=== PATIENT | male | born 1935 | race Caucasian/White ===

== ENCOUNTER 2017-02-26 17:31 | Inpatient (IN) | payer MEDICARE ==
[~2017-02-26] VITALS: Ht 172.7 cm; Wt 73.9 kg
[~2017-02-26 17:31] MED LIST: AMIO200T2 PO; CARV3.122 PO; CHOL200038 PO; CYAN100071 PO; ECON30CR2 TP; EZET10TA PO; FOLI0.8T PO; FURO20TA4 PO; NIAC500C3 PO; PANT40TA2 PO; PARO20TA51 PO; SIMV40TA5 PO; TRAZ-144 PO; WARF2TAB6 PO; [UNRECOGNIZED DRUG - OTHER] PO
--- NOTE | 2017-02-26 17:40 | NUR ---
BIB RA FROM HOME, FEVER AND CHILLS. NOTED AMS, FEBRILE. NOTED GENERALIZED WEAKNESS AND SAHKINESS. SEEN BY MD FOR EVAL. SAFETY AND COMFORT MEASURES PROVIDED. WILL MONITOR.
[2017-02-26] MEDS ORDERED: ACETAMINOPHEN 650 MG/SUPP.RECT RC ONE ×2 (17:43→18:30)
[2017-02-26 17:51] LABS: BASOPHILS # (AUTO) 0.3 /CMM (0.0-0.2); BASOPHILS % (AUTO) 2.2 % (0.0-2.0); EOSINOPHILS # (AUTO) 0.3 /CMM (0.0-0.7); EOSINOPHILS % (AUTO) 2.2 % (0.0-6.0); HEMATOCRIT 39 % (39-51); HEMOGLOBIN 12.3 g/dL (13.5-17.5); MEAN CORPUSCULAR HEMOGLOBIN 28 PG (26.0-33.0); MEAN CORPUSCULAR HGB CONC 32 g/dl (31.0-36.0); MEAN CORPUSCULAR VOLUME 88 fL (80-96); MONOCYTES # (AUTO) 0.9 /CMM (0.1-1.30); MONOCYTES % (AUTO) 6.3 % (2.0-12.0); NEUTROPHILS # (AUTO) 11.7 /CMM (1.8-8.9); NEUTROPHILS % (AUTO) 82.3 % (43.0-81.0); PLATELET COUNT (AUTO) 243 /CMM (150-450); RDW COEFFICIENT OF VARIATION 16.1 (11.5-15.0); RED BLOOD CELL COUNT(AUTO) 4.42 MIL/uL (4.5-6.0); WHITE BLOOD COUNT (AUTO) 14.2 K/uL (4.3-11.0)
[2017-02-26] MEDS ORDERED: IV NS 0.9% 1,000 ML BAG IV ONE ×2 (18:00→18:30)
--- NOTE | 2017-02-26 18:00 | NUR ---
IV ACCESS STARTED, BLOOD DRAWN FOR LABS. FC INITIATED, URINE SAMPEL OBTAINED.
[2017-02-26 18:02] LABS: CALCIUM, SERUM 9.2 mg/dL (8.5-10.1); CARBON DIOXIDE 30 mmol/L (21-32); CHLORIDE 99 mmol/L (98-107); CREATININE 1.5 mg/dL (0.6-1.3); GLUCOSE 87 mg/dL (74-106); SODIUM SERUM 137 mmol/L (136-145); UREA NITROGEN, BLOOD 24 mg/dL (7-18)
--- NOTE | 2017-02-26 18:03 | NUR ---
IVF INFUSED AND TYLENOL RECTALLY GIVEN ORDERED
[2017-02-26 18:05] LABS: INR 1.9 (0.87-1.13); PROTHROMBIN TIME 20.4 SECS (9.5-12.7)
--- NOTE | 2017-02-26 18:05 | NUR ---
PT TAKEN TO CT.
[2017-02-26 18:07] LABS: ALANINE AMINOTRANSFERASE 41 U/L (12-78); ALBUMIN 3.1 g/dL (3.4-5.0); ALCOHOL, BLOOD < 3 mg/dL (0-0); ALKALINE PHOSPHATASE 84 U/L (46-116); ASPARTATE AMINOTRANSFERASE 45 U/L (15-37); BILIRUBIN,DIRECT 0.2 mg/dL (0.0-0.2); BILIRUBIN,TOTAL 0.8 mg/dL (0.2-1.0); TOTAL PROTEIN, SERUM 8.9 g/dL (6.4-8.2)
[2017-02-26 18:08] LABS: SERUM AMMONIA 16 umol/L (11-32)
[2017-02-26 18:09] LABS: TROPONIN I 0.018 ng/mL (0.00-0.056)
[2017-02-26 18:11] LABS: APPEARANCE,URINE Clear (CLEAR); BILIRUBIN,URINE Negative (NEGATIVE); BLOOD, URINE Trace-intact Ery/uL (NEGATIVE); COLOR,URINE Dark (YELLOW); KETONES,URINE Negative (NEGATIVE); LEUKOCYTE ESTERASE ,URINE Negative (NEGATIVE); NITRITE, URINE Negative (NEGATIVE); PH,URINE 5.5 (5.0-8.0); PROTEIN,URINE Negative (NEGATIVE); UGLUCOSE Negative (NEGATIVE); UROBILINOGEN,URINE 0.2 EU/dL (0.2)
[2017-02-26 18:20] LABS: THYROID STIMULATING HORMONE 2.348 uIU/mL (0.358-3.74)
--- NOTE | 2017-02-26 18:23 | NUR ---
DI HERNÁNDEZ- - SON.
[2017-02-26] MEDS ORDERED: WARF1TAB6 PO (18:27)
[2017-02-26] MEDS ORDERED: CHOL100044 PO (18:27)
[2017-02-26] MEDS ORDERED: MULT-659 PO (18:27)
[2017-02-26] MEDS ORDERED: IV NS 0.9% 500 ML IV ONE (18:30)
[2017-02-26 18:33] LABS: BACTERIA,URINE None seen /HPF (None Seen); HYALINE CASTS, URINE Moderate /LPF (None Seen); SQUAMOUS EPITHELIAL CELL,UR Few /HPF (None Seen); WBC,URINE 0-2 /HPF (0-3)
[2017-02-26] MEDS ORDERED: WARF2TAB6 PO (18:37)
--- NOTE | 2017-02-26 19:02 | NUR ---
RECEIVED REPORT FROM MERY FINN FOR SARINA. PT IN CT AT THIS TIME.
[2017-02-26] MEDS ORDERED: PIPERACILLIN /TAZOBACTAM 3.375 G VIAL IV ONE (19:24)
--- NOTE | 2017-02-26 19:25 | NUR ---
BED 313-1
[2017-02-26] MEDS ORDERED: PIPERACILLIN /TAZOBACTAM 3.375 G in IV D5W 50 ML IV ONE (19:30)
[2017-02-26] MEDS ORDERED: MORPHINE SULFATE INJ 4 MG/ML DISP.SYRIN IV ONE (19:30)
--- NOTE | 2017-02-26 19:36 | NUR ---
REPORT GIVEN TO MERY CHURCHILL FOR SARINA/ TELE BED 313-1
--- NOTE | 2017-02-26 19:46 | NUR ---
LAB AT BEDSIDE FOR LACTIC ACID REDRAW
--- NOTE | 2017-02-26 19:52 | NUR ---
PATIENT'S SON REYNA- [phone]
--- NOTE | 2017-02-26 20:12 | NUR ---
RECTAL TEMP 103.2 DR. GREEN MADE AWARE. VERBAL ORDERS PER MD TO GIVEN MOTRIN 800 PO NOW.
[2017-02-26] MEDS ORDERED: IBUPROFEN 400 MG TABLET ONE (20:13)
[2017-02-26 21:30] VITALS: BP 110/70
[2017-02-26] MEDS ORDERED: IBUPROFEN 800 MG TABLET PO PRN (21:30)
--- NOTE | 2017-02-26 21:31 | NUR ---
PT TRANSFERED PER ACLS PROTOCOL.
--- NOTE | 2017-02-26 21:35 | NUR ---
MATHEMATICS EDUCATION PROFESSOR NOTE RECEIVED PATIENT FROM ER VIA [place], PATIENT IS ALERT AND ORIENTEDX2, GETTING OXYGEN 2L/MIN VIA NC, HERRING CATH NOTED WITH SLIGHT CLOUDY YELLOW URINE. TELE MONITOR AFIB WITH BBB 98. IV ON LEFT FA AND RIGHT FA ARE PATENT AND INTACT, WILL CONNECT TO FLUID. PICTURES TAKEN FOR SKIN PROBLEMS, NO EDEMA NOTED. SRX2, BED IN LOW POSITION, CALL LIGHT WITHIN REACH, WILL CONTINUE TO MONITOR PATIENT.
[2017-02-26] MEDS ORDERED: MORPHINE SULFATE INJ 2 MG/ML DISP.SYRIN IV PRN (22:00)
[2017-02-26] MEDS ORDERED: HYDROCODONE/APAP 5/325MG 1 EACH TABLET PO PRN (22:00)
[2017-02-26] MEDS ORDERED: ACETAMINOPHEN 325 MG TABLET PO PRN (22:00)
[2017-02-26] MEDS ORDERED: MAGNESIUM HYDROXIDE 30 ML UDC PO PRN (22:00)
[2017-02-26] MEDS ORDERED: ONDANSETRON HCL/PF 4 MG/2 ML VIAL IVP PRN (22:00)
[2017-02-26] MEDS ORDERED: ZOLPIDEM TARTRATE 5 MG TABLET PO PRN (22:00)
[2017-02-26] MEDS ORDERED: MAG HYDROX/AL HYDROX/SIMETH 30 ML UDC PO PRN (22:00)
[2017-02-26] MEDS: IV NS 0.9% 1,000 ML IV PRN (22:07)
[2017-02-26] MEDS ORDERED: PIPERACILLIN /TAZOBACTAM 2.25 G VIAL IV ONE (23:26)
[2017-02-27] VITALS (7 sets, daily range): BP systolic 102–149; BP diastolic 64–78
[2017-02-27] MEDS: PIPERACILLIN /TAZOBACTAM 2.25 G in IV D5W 50 ML IV SCH ×5 (00:10→23:50)
[2017-02-27] MEDS ORDERED: WARFARIN SODIUM 1 MG TABLET PO SCH (01:00)
--- NOTE | 2017-02-27 01:20 | NUR ---
MS ORDONEZ NOTE PATIENT'S HOME MED WARFARIN 1MG PO AT 0100 HELD AT THIS TIME SINCE PATIENT IS IN DEEP SLEEP, AND PER CHARGE NURSE, NEED TO CHECK THE USUAL TIME THAT PT TAKES WITH A CAREGIVER OR FAMILY MEMBERS. WILL ENDORSE TO DAY SHIFT NURSE IN THE MORNING. Addendum: 02/27/17 at 0150 by MAIRA GALLO RN GEE GAVIN
[2017-02-27] MEDS ORDERED: PIPERACILLIN /TAZOBACTAM 2.25 G VIAL IV ONE (04:27)
--- NOTE | 2017-02-27 06:33 | NUR ---
WASTEWATER DESIGN ENGINEER NOTE PATIENT IS SLEEPING IN BED COMFORTABLY, NO S/S OF RESPIRATORY DISTRESS OR FACIAL GRIMACE NOTED. TELE MONITOR AFIB 62. WILL ENDORSE TO DAY SHIFT NURSE FOR SARINA.
[2017-02-27 06:53] LABS: BASOPHILS % (AUTO) 0.2 % (0.0-2.0); EOSINOPHILS % (AUTO) 0.3 % (0.0-6.0); HEMATOCRIT 28 % (39-51); HEMOGLOBIN 9.2 g/dL (13.5-17.5); LYMPHOCYTES # (AUTO) 0.4 /CMM (0.8-4.8); LYMPHOCYTES % (AUTO) 3.4 % (20.0-44.0); MEAN CORPUSCULAR HEMOGLOBIN 29 PG (26.0-33.0); MEAN CORPUSCULAR HGB CONC 33 g/dl (31.0-36.0); MEAN CORPUSCULAR VOLUME 88 fL (80-96); MONOCYTES # (AUTO) 0.5 /CMM (0.1-1.30); MONOCYTES % (AUTO) 4.3 % (2.0-12.0); NEUTROPHILS # (AUTO) 11.2 /CMM (1.8-8.9); NEUTROPHILS % (AUTO) 91.8 % (43.0-81.0); PLATELET COUNT (AUTO) 151 /CMM (150-450); RDW COEFFICIENT OF VARIATION 17.3 (11.5-15.0); RED BLOOD CELL COUNT(AUTO) 3.18 MIL/uL (4.5-6.0); WHITE BLOOD COUNT (AUTO) 12.2 K/uL (4.3-11.0)
[2017-02-27 07:18] LABS: CHOLESTEROL 136 mg/dL (<200); HDL CHOLESTEROL 56 mg/dL (40-60); LDL 72 mg/dL (0-99); TRIGLYCERIDES 51 mg/dL (30-150)
[2017-02-27 07:27] LABS: CARBON DIOXIDE 28 mmol/L (21-32); CHLORIDE 107 mmol/L (98-107); CREATININE 1.3 mg/dL (0.6-1.3); GLUCOSE 84 mg/dL (74-106); MAGNESIUM 1.8 mg/dL (1.8-2.4); PHOSPHORUS 3.5 mg/dL (2.5-4.9); POTASSIUM 3.7 mmol/L (3.5-5.1); SODIUM SERUM 141 mmol/L (136-145); UREA NITROGEN, BLOOD 21 mg/dL (7-18)
--- NOTE | 2017-02-27 07:30 | NUR ---
RADIOLOGIC TECHNICIAN NOTES PT IN BED, ASLEEP, EASY TO AROUSE, ALERT AND ORIENTED, NO COMPLAINT OF PAIN, RESPIRATIONS REGULAR AND NOT LABORED, IV FLUIDS INFUSING WELL, CALL LIGHT WITHIN REACH, ASSISTED WITH BREAKFAST AND NEEDS.
[2017-02-27] MEDS: AMIODARONE HCL 200 MG TABLET PO SCH (09:00)
[2017-02-27] MEDS: CARVEDILOL 3.125 MG TABLET PO SCH ×2 (09:00→17:00)
[2017-02-27] MEDS ORDERED: FUROSEMIDE 20 MG TABLET PO SCH (09:00)
[2017-02-27] MEDS ORDERED: PANTOPRAZOLE 40 MG TABLET.DR PO SCH (09:00)
[2017-02-27] MEDS ORDERED: HEPARIN SODIUM, PORCINE 5000 UNITS/1 ML VIAL SQ SCH (09:00)
--- NOTE | 2017-02-27 09:00 | NUR ---
HIGH MAN NOTES COREG AND CORDARONE HELD, BP 109/70, HR 67
[2017-02-27] MEDS: MULTIVITAMINS,THERAGRAN 1 UDTAB TABLET PO SCH (09:01)
[2017-02-27] MEDS: PANTOPRAZOLE 40 MG TABLET.DR PO SCH (09:01)
[2017-02-27] MEDS: CHOLECALCIFEROL 1,000 UNIT TABLET (VIT D3) PO SCH (09:01)
[2017-02-27] MEDS: EZETIMIBE 10 MG TABLET PO SCH (09:01)
[2017-02-27] MEDS: CYANOCOBALAMIN 500 MCG TABLET PO SCH (09:01)
[2017-02-27] MEDS: FOLIC ACID 1 MG TABLET PO SCH (09:01)
[2017-02-27] MEDS: PAROXETINE HCL 20 MG TABLET PO SCH (09:01)
[2017-02-27 09:53] LABS: INR 1.87 (0.87-1.13); PROTHROMBIN TIME 20.8 SECS (9.5-12.7)
[2017-02-27 09:54] LABS: THYROID STIMULATING HORMONE 0.87 uIU/mL (0.358-3.74)
[2017-02-27] MEDS: ECONAZOLE NITRATE 15 GM TUBE TP SCH ×2 (10:24→17:40)
[2017-02-27] MEDS: ENOXAPARIN SODIUM 80 MG/0.8 ML DISP.SYRIN SQ SCH ×2 (10:38→21:14)
--- NOTE | 2017-02-27 12:00 | NUR ---
EFFICIENCY MINER BLASTING NOTES PT IN BED, RESTING, NO SIGN OF PAIN OR DISTRESS, PT SEEN BY DR. LEDESMA AND DR. BEEBE, PLAN OF CARE DISCUSSED WITH PT AND SON DI OVER THE PHONE, VERBALIZED UNDERSTANDING, CAREGIVER CHANA AT BEDSIDE.
[2017-02-27] MEDS: IV NS 0.9% 1,000 ML IV PRN (13:01)
--- NOTE | 2017-02-27 17:00 | NUR ---
MARKETING RESEARCH ANALYST NOTES COREG HELD, BP 108/68, HR 69
--- NOTE | 2017-02-27 18:13 | NUR ---
AUTOMOTIVE SERVICE MANAGER NOTES PT IN BED, AWAKE, ALERT AND ORIENTED, NO COMPLAINT OF PAIN, NOT IN DISTRESS, CAREGIVER CHANA AT BEDSIDE, ASSISTED WITH DINNER, IV FLUIDS INFUSING WELL, RECEIVED LATEST BLOOD CULTURE RESULT FROM LAB, MD AWARE, ID CONSULT ORDERED, PM CARE RENDERED, ALL NEEDS ATTENDED.
--- NOTE | 2017-02-27 19:35 | NUR ---
PLASTERER STUCCO NOTE RECEIVED PATIENT FROM DAY SHIFT, PATIENT IS ALERT AND ORIENTEDX2-3, NO S/S OF RESPIRATORY DISTRESS OR PAIN AT THIS TIME. IV ON LEFT AND RIGHT FA ARE PATENT AND INTACT, FLUID IS RUNNING. TELE MONITOR AFIB 60. SRX2, BED IN LOW POSITION, CALL LIGHT WITHIN REACH, WILL CONTINUE TO MONITOR PATIENT.
[2017-02-27] MEDS: TRAZODONE 50 MG TABLET PO SCH (21:14)
[2017-02-27] MEDS: SIMVASTATIN 40 MG TABLET PO SCH (21:14)
[2017-02-28] VITALS (7 sets, daily range): BP systolic 135–158; BP diastolic 62–88
[2017-02-28] MEDS: IV NS 0.9% 1,000 ML IV PRN (01:34)
[2017-02-28] MEDS: PIPERACILLIN /TAZOBACTAM 2.25 G in IV D5W 50 ML IV SCH ×4 (05:40→23:56)
--- NOTE | 2017-02-28 06:43 | NUR ---
ARTS AND CRAFTS INSTRUCTOR NOTE PATIENT IS RESTING IN BED COMFORTABLY, NO ACUTE DISTRESS NOTED DURING THE TRANSFORMER TESTER. IV ON LEFT AND RIGHT FA ARE PATENT AND INTACT, NS IS RUNNING. WILL ENDORSE TO DAY SHIFT FOR SARINA.
[2017-02-28 07:01] LABS: EOSINOPHILS # (AUTO) 0.2 /CMM (0.0-0.7); EOSINOPHILS % (AUTO) 3.2 % (0.0-6.0); HEMATOCRIT 30 % (39-51); HEMOGLOBIN 9.9 g/dL (13.5-17.5); LYMPHOCYTES # (AUTO) 0.6 /CMM (0.8-4.8); LYMPHOCYTES % (AUTO) 8.9 % (20.0-44.0); MEAN CORPUSCULAR HEMOGLOBIN 29 PG (26.0-33.0); MEAN CORPUSCULAR HGB CONC 33 g/dl (31.0-36.0); MEAN CORPUSCULAR VOLUME 89 fL (80-96); MONOCYTES # (AUTO) 0.5 /CMM (0.1-1.30); MONOCYTES % (AUTO) 6.8 % (2.0-12.0); NEUTROPHILS # (AUTO) 5.5 /CMM (1.8-8.9); NEUTROPHILS % (AUTO) 81.1 % (43.0-81.0); PLATELET COUNT (AUTO) 133 /CMM (150-450); RED BLOOD CELL COUNT(AUTO) 3.38 MIL/uL (4.5-6.0); WHITE BLOOD COUNT (AUTO) 6.8 K/uL (4.3-11.0)
--- NOTE | 2017-02-28 07:05 | NUR ---
LINE PRODUCER OPENING NOTE PATIENT IS SLEEPING IN BED COMFORTABLY. PATIENT OPENED THE EYES BRIEFLY AND SPOKE TO RN. A/O X 4. VS WNL, AFIB W HR 62. PATIENT IS STABLE. BED IS IN LOWEST POSITION, SIDE RAILS UP X 2, BED ALARM ON. ALL NEEDS ARE MET.
[2017-02-28 07:24] LABS: CALCIUM, SERUM 8.3 mg/dL (8.5-10.1); CARBON DIOXIDE 30 mmol/L (21-32); CHLORIDE 108 mmol/L (98-107); CREATININE 1.1 mg/dL (0.6-1.3); GLUCOSE 84 mg/dL (74-106); MAGNESIUM 1.9 mg/dL (1.8-2.4); PHOSPHORUS 3.5 mg/dL (2.5-4.9); POTASSIUM 3.8 mmol/L (3.5-5.1); SODIUM SERUM 143 mmol/L (136-145); UREA NITROGEN, BLOOD 14 mg/dL (7-18)
[2017-02-28 07:26] LABS: INR 1.93 (0.87-1.13); PROTHROMBIN TIME 21.5 SECS (9.5-12.7)
--- NOTE | 2017-02-28 07:45 | NUR ---
MIXING MACHINE ATTENDANT NOTE PATIENT STATED HE WILL TAKE HIS 7:30 MEDICATION LITTLE Addendum: 02/28/17 at 0948 by CARLOS ENRIQUE FIGUEROA RN LATER HE IS VERY SLEEPY. MEDICATION IS HELD AT THIS TIME. WILL ADMINISTER WITH 9 O CLOCK MEDICATIONS.
[2017-02-28] MEDS: FOLIC ACID 1 MG TABLET PO SCH (08:50)
[2017-02-28 08:51] LABS: IRON, SERUM 24 ug/dl (50-175); TOTAL IRON BINDING CAPACITY 162 ug/dl (250-450)
[2017-02-28] MEDS: CARVEDILOL 3.125 MG TABLET PO SCH ×2 (08:52→17:05)
[2017-02-28] MEDS: EZETIMIBE 10 MG TABLET PO SCH (08:52)
[2017-02-28] MEDS: PANTOPRAZOLE 40 MG TABLET.DR PO SCH (08:53)
[2017-02-28] MEDS: AMIODARONE HCL 200 MG TABLET PO SCH (08:55)
[2017-02-28] MEDS: CYANOCOBALAMIN 500 MCG TABLET PO SCH (08:56)
[2017-02-28] MEDS: CHOLECALCIFEROL 1,000 UNIT TABLET (VIT D3) PO SCH (08:57)
[2017-02-28] MEDS: MULTIVITAMINS,THERAGRAN 1 UDTAB TABLET PO SCH (08:57)
[2017-02-28] MEDS ORDERED: WARFARIN SODIUM 1 MG TABLET PO SCH (09:00)
--- NOTE | 2017-02-28 09:00 | NUR ---
BLOOD TYPER NOTE DR LEDESMA REQUESTEED PATIENT'S MOST RECENT ECHO FILES TO BE OBTAINED FROM [facility]. PATIENT SIGNED MEDICAL RELEASE FORM.
--- NOTE | 2017-02-28 09:00 | NUR ---
RADIO/TV TECHNICIAN NOTE WARFARIN NOT ADMINISTERED AND RETURNED TO OMNICEL DUE TO CHANGE IN ORDER BY Jena
[2017-02-28 09:06] LABS: FERRITIN 266 ng/mL (8-388)
[2017-02-28] MEDS: ENOXAPARIN SODIUM 80 MG/0.8 ML DISP.SYRIN SQ SCH ×2 (09:07→21:09)
[2017-02-28] MEDS: Z GUARD REMEDY 2 OZ OINT TP PRN (09:10)
[2017-02-28] MEDS: ECONAZOLE NITRATE 15 GM TUBE TP SCH ×2 (09:15→17:06)
[2017-02-28] MEDS: PAROXETINE HCL 20 MG TABLET PO SCH (09:19)
--- NOTE | 2017-02-28 09:57 | NUR ---
HYDROGRAPHY TEACHER NOTE SPOKE TO PATIENT'S SON REYNA IN REGARDS TO OBTAINING PATIENT'S ECHO FROM [facility]. THE SON SAID HE WILL FA[facility] THE E[facility] RESULTS [facility] WITH[facility] THE NEXT HOUR. WILL INFORM DR. LEDESMA ONCE THE FAX IS RECEIVED.
--- NOTE | 2017-02-28 11:36 | NUR ---
ROAD MARKER NOTE DR HURLEY AT BEDSIDE. DR KAPOOR AWARE OF CONSULT.
--- NOTE | 2017-02-28 11:41 | NUR ---
DREDGE CAPTAIN NOTES NOTIFIED MD HURLEY PATIENT BLOOD CULTURE POSITIVE FOR STAPH. PER MD ORDER VANCO 1G DAILY IVPB AND CHANGE LOVENOX TO 1MG/KG
[2017-02-28] MEDS ORDERED: VANCOMYCIN 1 GM in IV D5W 250 ML IV SCH (12:00)
[2017-02-28] MEDS ORDERED: FEE PK DOSING 1 MIN EA MC ONE (12:11)
--- NOTE | 2017-02-28 12:30 | NUR ---
OPERATIONS INTERN NOTES PATIENT PULLED OUT IV ON RIGHT FA. PRESSURE AND DRESSING APPLIED AND BLEEDING CONTROLLED. PRESSURE HELD AND NO BLEEDING NOTED. DRESSING APPLIED AND NO S/S TRAUMA TO ARM. IV CATH TIP INTACT. IVF CONNECTED TO PATIENT LEFT FA. PATIENT STABLE
[2017-02-28] MEDS: VANCOMYCIN 1 GM in IV D5W 250ml IV SCH ×2 (14:00→23:56)
[2017-02-28] MEDS: WARFARIN SODIUM 2.5 MG TABLET PO SCH (17:11)
--- NOTE | 2017-02-28 19:31 | NUR ---
PRICING DIRECTOR CLOSING NOTE PATIENT IS RESTING IN BED. CAREGIVER AT THE BEDSIDE. BED IS LOCKED IN THE LOWEST POSITION, SIDE RAILS UP X 2, AGUILAR'S POSITION. ALL NEEDS WARTHIN REACH. VS WNL.SPO2 97% RA. DENIES PAIN/DISCOMFORT. EXTERNAL MONITOR AFBIB HR 76. WILL ENDORSE TO THE NEXT SHIFT FOR SARINA.
--- NOTE | 2017-02-28 19:45 | NUR ---
TELE/RN RECEIVE PATIENT AWAKE, ALERT, ORIENTED, COMFORTABLE, NO C/O PAIN, NO DISTRESS NOTED, FALL PRECAUTION, INSTRUCTED THE PATIENT TO USE THE CALL LIGHT FOR ANY ASSISTANCE. VERBALIZED UNDERSTANDING. WILL MONITOR.
[2017-02-28] MEDS: SIMVASTATIN 40 MG TABLET PO SCH (21:07)
[2017-02-28] MEDS: TRAZODONE 50 MG TABLET PO SCH (21:07)
[2017-03-01 00:36] VITALS: BP 151/88
--- NOTE | 2017-03-01 02:29 | NUR ---
TELE/RN SLEEPING AROUSABLE, APPEAR COMFORTABLE, NO SIGNS OF DISTRESS NOTED, CALL LIGHT IN REACH. WILL CONTINUE TO MONITOR.
[2017-03-01 04:15] VITALS: BP 145/79
[2017-03-01] MEDS: PIPERACILLIN /TAZOBACTAM 2.25 G in IV D5W 50 ML IV SCH ×2 (05:45→11:26)
--- NOTE | 2017-03-01 06:13 | NUR ---
TELE/RN STILL SLEEPING, AROUSABLE, APPEAR COMFORTABLE, NO DISTRESS NOTED, ALL NEEDS ATTENDED AT THIS TIME. WILL CONTINUE TO MONITOR.
[2017-03-01 06:41] LABS: BASOPHILS % (AUTO) 0.1 % (0.0-2.0); EOSINOPHILS # (AUTO) 0.2 /CMM (0.0-0.7); EOSINOPHILS % (AUTO) 2.3 % (0.0-6.0); HEMATOCRIT 33 % (39-51); HEMOGLOBIN 10.9 g/dL (13.5-17.5); LYMPHOCYTES # (AUTO) 0.7 /CMM (0.8-4.8); MEAN CORPUSCULAR HEMOGLOBIN 29 PG (26.0-33.0); MEAN CORPUSCULAR HGB CONC 33 g/dl (31.0-36.0); MEAN CORPUSCULAR VOLUME 89 fL (80-96); MONOCYTES # (AUTO) 0.5 /CMM (0.1-1.30); MONOCYTES % (AUTO) 6.1 % (2.0-12.0); NEUTROPHILS # (AUTO) 6.1 /CMM (1.8-8.9); NEUTROPHILS % (AUTO) 82.5 % (43.0-81.0); PLATELET COUNT (AUTO) 161 /CMM (150-450); RDW COEFFICIENT OF VARIATION 17.1 (11.5-15.0); RED BLOOD CELL COUNT(AUTO) 3.72 MIL/uL (4.5-6.0); WHITE BLOOD COUNT (AUTO) 7.4 K/uL (4.3-11.0)
[2017-03-01 06:54] LABS: CALCIUM, SERUM 8.7 mg/dL (8.5-10.1); CARBON DIOXIDE 30 mmol/L (21-32); CHLORIDE 103 mmol/L (98-107); CREATININE 1.1 mg/dL (0.6-1.3); GLUCOSE 90 mg/dL (74-106); MAGNESIUM 1.9 mg/dL (1.8-2.4); PHOSPHORUS 2.9 mg/dL (2.5-4.9); POTASSIUM 3.3 mmol/L (3.5-5.1); SODIUM SERUM 140 mmol/L (136-145); UREA NITROGEN, BLOOD 8 mg/dL (7-18)
--- NOTE | 2017-03-01 07:30 | NUR ---
BUSINESS INITIATIVES MANAGER OPENING NOTE REPORT RECEIVED ON PATIENT. PATIENT IS RESTING IN BED WITH EYES CLOSED. BED IN LOWEST POSITION, SIDE RAILS UP X 2, BED ALARM ON. PATIENT DENIED PAIN DISCOMFORT AT THIS TIME. VS WNL. REFUSED TO TAKE PROTONIX, STATED HE WIILL TAKE IT WITH 9 AM MEDICATIONS. EXTERNAL MONITOR READING CONTROLLED A FIB HR 72. WILL RETURN TO ASSESS THE PATIENT.
[2017-03-01 08:00] VITALS: BP 137/80
--- NOTE | 2017-03-01 08:42 | NUR ---
MATERIAL DAMAGE ADJUSTER NOTE GAVE REPORT TO DR. LEDESMA AND PROVIDED WITH TH ECHO RESULTS SENT BY PT SON YESTERDAY EVENING. DR LEDESMA CURRENTLY ON THE PHONE WITH PATIENT'S SON.
[2017-03-01] MEDS: ENOXAPARIN SODIUM 80 MG/0.8 ML DISP.SYRIN SQ SCH ×2 (09:06→22:18)
[2017-03-01] MEDS: AMIODARONE HCL 200 MG TABLET PO SCH (09:07)
[2017-03-01] MEDS: CARVEDILOL 3.125 MG TABLET PO SCH ×2 (09:08→17:41)
[2017-03-01] MEDS: FOLIC ACID 1 MG TABLET PO SCH (09:08)
[2017-03-01] MEDS: CHOLECALCIFEROL 1,000 UNIT TABLET (VIT D3) PO SCH (09:10)
[2017-03-01] MEDS: EZETIMIBE 10 MG TABLET PO SCH (09:10)
[2017-03-01] MEDS: PAROXETINE HCL 20 MG TABLET PO SCH (09:10)
[2017-03-01] MEDS: MULTIVITAMINS,THERAGRAN 1 UDTAB TABLET PO SCH (09:10)
[2017-03-01] MEDS: CYANOCOBALAMIN 500 MCG TABLET PO SCH (09:10)
[2017-03-01] MEDS: ECONAZOLE NITRATE 15 GM TUBE TP SCH ×2 (09:12→17:51)
[2017-03-01] MEDS: Z GUARD REMEDY 2 OZ OINT TP PRN (09:12)
[2017-03-01] MEDS: PANTOPRAZOLE 40 MG TABLET.DR PO SCH (09:17)
[2017-03-01 09:44] LABS: INR 2.38 (0.87-1.13); PROTHROMBIN TIME 26.9 SECS (9.5-12.7)
[2017-03-01 10:00] VITALS: BP 137/80
[2017-03-01] MEDS ORDERED: POTASSIUM CHLORIDE 20 MEQ TAB.PRT.SR PO SCH ×2 (10:30→12:30)
--- NOTE | 2017-03-01 10:59 | NUR ---
MS RN NOTE PATIENT IS AMBULATION WITH PT. CAREGIVER PRESENT AT THE SIDE. PATIENT BECAME VERY DIZZY AND HAD A TREMOR EPISODE. RN PROVIDED WITH CHAIR. PATIENT WAS ASSISTED TO THE CHAIR. NO FALL EPISODE. NO INJURY. PATIENT IS CURRENTLY SITTING IN A CHAIR IN HIS ROOM. VS WNL. PATIENT IS STABLE. CAREGIVER IN PATIENT'S ROOM.
[2017-03-01] MEDS: VANCOMYCIN 1 GM in IV D5W 250ml IV SCH (12:11)
[2017-03-01 14:15] LABS: *SPE A/G RATIO 0.9 (0.7-1.7); *SPE ALBUMIN 2.7 g/dL (2.9-4.4); *SPE ALPHA-1-GLOBULIN 0.2 g/dL (0.0-0.4); *SPE ALPHA-2-GLOBULIN 0.4 g/dL (0.4-1.0); *SPE BETA GLOBULIN 0.9 g/dL (0.7-1.3); *SPE GLOBULIN, TOTAL 3.1 g/dL (2.2-3.9); *SPE M-SPIKE Not Observed g/dL (Not Observed); *SPE PROTEIN TOTAL 5.8 g/dL (6.0-8.5); *SPEGAMMA GLOBULIN 1.5 g/dL (0.4-1.8)
[2017-03-01 16:00] VITALS: BP 122/66
[2017-03-01] MEDS: WARFARIN SODIUM 2.5 MG TABLET PO SCH (17:43)
--- NOTE | 2017-03-01 17:44 | NUR ---
MS RN NOTES NOTIFIED DR EMANUEL AND UPDATED ON DR LEDESMA AND DR FINNEY PLAN. DR EMANUEL WILL SPEAK WITH PATIENT SON JINA AND DISCUSS PLAN. PER MD EMANUEL IF SON AGREEABLE OK TO INSERT PICC LINE AT BEDSIDE. ID MD AT BEDSIDE WELL WITH MD CHUCKIE EMANUEL
--- NOTE | 2017-03-01 18:21 | NUR ---
MS RN NOTES CHUCKIE EMANUEL SIGNED CONSENT FOR PICC LINE AND SPOKE WITH HERMES MURO. AT BEDSIDE FOR PICC INSERTION
--- NOTE | 2017-03-01 18:30 | NUR ---
MS RN NOTES DR DOMINIQUE WONG AND MARISELA TOWNSEND AT BEDSIDE SECURING THE J TUBE IN PLACE. PATIENT STABLE NO COMPLICATIONS. BOTH ID AND SURGEON AWARE OF CONTINUOUS DRAINAGE FROM THE G TUBE SITE
--- NOTE | 2017-03-01 18:54 | NUR ---
MS RN CLOSING NOTE PATIENT IS RESTING IN BED EYES OPEN. BED IS IN LOWEST, LOCKED POSITION, SEMI-AGUILAR'S, SIDE RAILS UP X 2, BED ALARM ON. CHEST X-RAY WAS PERFORMED AT THE BEDSIDE TO CONFIRM PICC LINE PLACEMENT. DR. EMANUEL AT THE BEDSIDE AT THE TIME OF CONFIRMATION. PATIENT TOLERATED PROCEDURE WELL. PATIENT IS STABLE. ALL NEEDS WITHIN REACH.CAREGIVER AT THE BEDSIDE. WILL ENDORSE TO CLUB ROOM ATTENDANT FOR SARINA.
[2017-03-01] MEDS: RIFAMPIN 300 MG CAPSULE PO SCH (19:06)
[2017-03-01] MEDS ORDERED: FEE PK DOSING 1 MIN EA MC ONE (19:08)
--- NOTE | 2017-03-01 19:31 | NUR ---
rn note; RECEIVED PT IN BED AWAKE AN ALERT. BREATHING EVENLY. NO SOB. NAD. SKIN WARM AND DRY . NO C/O PAIN AT THIS TIME. S/P PICC LINE INSERTION W/ NO COMPLICATION AT THIS TIME. NO BLEEDING . ALL NEEDS ATTENDED. SAFETY MEASURES AND FALL PRECAUTIONS WERE REMINDED TO THE PT. CALL LIGHT WITHIN REACH, WILL CONT TO MONITOR
[2017-03-01 20:00] VITALS: BP 116/75
[2017-03-01] MEDS ORDERED: GENTAMICIN 100 MG in IV D5W 100 ML IV SCH (20:00)
[2017-03-01] MEDS: GENTAMICIN 100 MG in IV D5W 50 ML IV SCH (20:04)
[2017-03-01] MEDS ORDERED: CEFAZOLIN 1 GM VIAL IV SCH (21:00)
[2017-03-01] MEDS: SIMVASTATIN 40 MG TABLET PO SCH (22:09)
[2017-03-01] MEDS: CEFAZOLIN SODIUM 2 GM in IV SODIUM CHLORIDE 0.9% 50 ML IV SCH (22:09)
[2017-03-01] MEDS: TRAZODONE 50 MG TABLET PO SCH (22:09)
[2017-03-02] MEDS: CEFAZOLIN SODIUM 2 GM in IV SODIUM CHLORIDE 0.9% 50 ML IV SCH ×2 (05:04→12:44)
[2017-03-02 06:56] LABS: BASOPHILS % (AUTO) 0.2 % (0.0-2.0); EOSINOPHILS # (AUTO) 0.2 /CMM (0.0-0.7); EOSINOPHILS % (AUTO) 2.5 % (0.0-6.0); HEMATOCRIT 29 % (39-51); HEMOGLOBIN 9.6 g/dL (13.5-17.5); LYMPHOCYTES # (AUTO) 0.5 /CMM (0.8-4.8); LYMPHOCYTES % (AUTO) 7.4 % (20.0-44.0); MEAN CORPUSCULAR HEMOGLOBIN 29 PG (26.0-33.0); MEAN CORPUSCULAR HGB CONC 33 g/dl (31.0-36.0); MEAN CORPUSCULAR VOLUME 87 fL (80-96); MONOCYTES # (AUTO) 0.4 /CMM (0.1-1.30); MONOCYTES % (AUTO) 7.3 % (2.0-12.0); NEUTROPHILS % (AUTO) 82.6 % (43.0-81.0); PLATELET COUNT (AUTO) 143 /CMM (150-450); WHITE BLOOD COUNT (AUTO) 6.1 K/uL (4.3-11.0)
--- NOTE | 2017-03-02 06:59 | NUR ---
RN NOTE; PT IN BED SLEEPING, AROUSES EASILY. BREATHING EVENLY. NO SOB. NAD. SKIN WARM AND DRY. F/C IN PLACE DRAINING YELLOW ORANGE CLEAR URINE. NO C/O PAIN OR DISCOMFORT. NO ACUTE EVENT DURING THE NIGHT . PICC LINE IN PLACE W/ BLOOD DRAW BACK . PATENT AND INTACT. NEEDS ATTENDED . CALL LIGHT WITHIN REACH. WILL CONT TO MONITOR AND WILL ENDORSE TO AM SHIFT FOR SARINA.
[2017-03-02 07:28] LABS: CALCIUM, SERUM 8.2 mg/dL (8.5-10.1); CARBON DIOXIDE 29 mmol/L (21-32); CHLORIDE 106 mmol/L (98-107); CREATININE 1.1 mg/dL (0.6-1.3); GLUCOSE 136 mg/dL (74-106); MAGNESIUM 1.8 mg/dL (1.8-2.4); PHOSPHORUS 3.2 mg/dL (2.5-4.9); POTASSIUM 3.4 mmol/L (3.5-5.1); SODIUM SERUM 141 mmol/L (136-145); UREA NITROGEN, BLOOD 12 mg/dL (7-18)
[2017-03-02 08:00] VITALS: BP 142/75
--- NOTE | 2017-03-02 08:00 | NUR ---
MED SURGE RN: INITIAL NOTES RECEIVED PT ALERT AND ORIENTED X3. ON ROOM AIR SATING AT 96%. NO DISTRESS NOTED. NO PAIN NOTED. NO SOB NOTED. NO N/V NOTED. ON CARDIAC DIET. FALL PRECAUTIONS IN PLACE. RESTING COMFORTABLY IN BED. INSTRUCTED TO CALL FOR ASSISTANCE. CALL LIGHT WITHIN REACH.
[2017-03-02 08:42] LABS: INR 2.94 (0.87-1.13); PROTHROMBIN TIME 33.7 SECS (9.5-12.7)
[2017-03-02] MEDS: GENTAMICIN 100 MG in IV D5W 50 ML IV SCH (08:47)
[2017-03-02] MEDS: CYANOCOBALAMIN 500 MCG TABLET PO SCH (08:48)
[2017-03-02] MEDS: FOLIC ACID 1 MG TABLET PO SCH (08:48)
[2017-03-02] MEDS: PAROXETINE HCL 20 MG TABLET PO SCH (08:48)
[2017-03-02] MEDS: RIFAMPIN 300 MG CAPSULE PO SCH ×2 (08:48→12:44)
[2017-03-02] MEDS: MULTIVITAMINS,THERAGRAN 1 UDTAB TABLET PO SCH (08:48)
[2017-03-02] MEDS: EZETIMIBE 10 MG TABLET PO SCH (08:48)
[2017-03-02] MEDS: PANTOPRAZOLE 40 MG TABLET.DR PO SCH (08:48)
[2017-03-02] MEDS: CARVEDILOL 3.125 MG TABLET PO SCH (08:49)
[2017-03-02] MEDS: AMIODARONE HCL 200 MG TABLET PO SCH (08:50)
[2017-03-02] MEDS: ECONAZOLE NITRATE 15 GM TUBE TP SCH (08:51)
--- NOTE | 2017-03-02 10:00 | NUR ---
SAMY AGUILA RN: PT EVALUATION PT WALKED WITH P T WITH MAXIMUM ASSISTANCE/ WALKER WITH WHEELCHAIR FOLLOWING. PT TOLERATED WALK WELL.
[2017-03-02] MEDS ORDERED: POTASSIUM CHLORIDE 20 MEQ TAB.PRT.SR PO SCH (10:45)
[2017-03-02] MEDS ORDERED: GENT100P5 IV ×2 (12:04→12:08)
[2017-03-02] MEDS ORDERED: CEFA2PLA9 IV (12:04)
[2017-03-02] MEDS ORDERED: RIFA300C4 PO (12:04)
--- NOTE | 2017-03-02 15:41 | NUR ---
SAMY AGUILA RN: D/C NOTE D/C HOME WITH HOME HEALTH ACCREDITED . PT STABLE. MEDICATIONS ADMINISTERED ORDERED BEFORE LEAVING. EDUCATED PT ABOUT D/C INSTRUCTIONS AND ALL DOCUMENTS SIGNED/ COPIES GIVEN BEFORE DEPARTURE. TAKEN HOME BY CAREGIVER VIA WHEELCHAIR IN PRIVATE CAR. ALL BELONGINGS ACCOUNTED FOR. PICC LINE AT RIGHT UPPER ARM, PATENT, NO REDNESS, NO BLEEDING NOTED, AND DRESSING INTACT. NO DISTRESS NOTED. NO SOB NOTED. VS STABLE.
[2017-03-02 16:00] VITALS: BP 157/85
[2017-03-05] MEDS ORDERED: WARFARIN SODIUM 2 MG TABLET PO SCH (09:00)
== END 2017-03-02 15:42 | disposition home health service (06) | DRG 871 ==
LOC: ER 17:33 → TELE 19:54 → MED 03-01 09:07
PROVIDERS: ADMIT Nurse Practitioner Acute Care; ATTEND Nurse Practitioner Acute Care
PROC: 02HV33Z Insertion of Infusion Device into Superior Vena Cava, Percutaneous Approach (ICD-10-PCS; principal; 2017-03-01)
DX: A41.9 Sepsis, unspecified organism (principal); N17.0 Acute kidney failure with tubular necrosis; I48.92 Unspecified atrial flutter; E87.2 Acidosis; G93.41 Metabolic encephalopathy; J18.9 Pneumonia, unspecified organism; F03.90 Unspecified dementia, unspecified severity, without behavioral disturbance, psychotic disturbance, mood disturbance, and anxiety; I48.91 Unspecified atrial fibrillation; I38 Endocarditis, valve unspecified; N39.0 Urinary tract infection, site not specified; R65.20 Severe sepsis without septic shock; I44.7 Left bundle-branch block, unspecified; E78.5 Hyperlipidemia, unspecified; F32.9 Major depressive disorder, single episode, unspecified; I25.10 Atherosclerotic heart disease of native coronary artery without angina pectoris; K57.30 Diverticulosis of large intestine without perforation or abscess without bleeding; K80.20 Calculus of gallbladder without cholecystitis without obstruction; Z95.1 Presence of aortocoronary bypass graft; Z86.73 Personal history of transient ischemic attack (TIA), and cerebral infarction without residual deficits; Z82.49 Family history of ischemic heart disease and other diseases of the circulatory system; Z79.01 Long term (current) use of anticoagulants; I12.9 Hypertensive chronic kidney disease with stage 1 through stage 4 chronic kidney disease, or unspecified chronic kidney disease; N18.9 Chronic kidney disease, unspecified
CPT/HCPCS: 36415; 70450-TC; 71010-TC; 71250-TC; 80048-TC; 80061-TC; 80074; 80076-TC; 80202-TC; 81000-TC; 82140-TC; 82728-TC; 83540-TC; 83605-TC; 83735-TC; 84100-TC; 84155; 84165; 84439-TC; 84443-TC; 84484-TC; 85025-TC; 85610-TC; 85730-TC; 87040-TC; 87081-TC; 87086-TC; 93307-TC; 97116-TC; 97530-TC; A4216; A4606; C1751; G0480; J0690; J1580; J1650; J2543; J3370; J7030; J7040; J7050; J7060; Z7610